=== PATIENT | female | born 1975 | race Hispanic/Latino ===

== ENCOUNTER → 2018-06-02 | Day surgery (SDC) | payer OTHER ==
--- NOTE | 2018-05-29 16:04 | Diagnostic Imaging Report ---
EXAMINATION: PA and lateral views of the chest. COMPARISON: None CLINICAL HISTORY: Preadmission, MASTER PILOT surgery DISCUSSION: Lines/tubes: None. Lungs: The lungs are well inflated and clear. No pneumonia or pulmonary edema. Pleura: No pleural effusion or pneumothorax. Heart and mediastinum: The cardiomediastinal silhouette is normal. Bones and soft tissues: No acute bony abnormalities. IMPRESSION: No acute cardiopulmonary abnormalities. Signed by: Dr. Lars Hernandez M.D. on 05/29/2018 4:00 PM
[2018-05-29 16:12] LABS: BASOPHILS % 0.4 % (0.0-1.0); EOSINOPHILS # (AUTO) 0.2 (0.0-0.4); EOSINOPHILS % 2.8 % (0.0-6.0); HEMATOCRIT 36.5 % (34.2-44.1); HEMOGLOBIN 11.9 g/dL (12.0-16.0); LYMPHOCYTES # (AUTO) 1.8 (1.0-3.2); LYMPHOCYTES % 25.8 % (18.0-39.1); MEAN CORPUSCULAR HEMOGLOBIN 25.8 pg (28-32); MEAN CORPUSCULAR HGB CONC 32.6 g/dL (31-35); MONOCYTES # (AUTO) 0.4 (0.2-0.8); MONOCYTES % 5.6 % (4.4-11.3); NEUTROPHILS # (AUTO) 4.4 (2.1-6.9); NEUTROPHILS % 65.1 % (38.7-80.0); PLATELET COUNT 319 x10e3/uL (140-360); RED BLOOD COUNT 4.62 x10e6/uL (3.6-5.1); RED CELL DISTRIBUTION WIDTH 15.7 % (11.7-14.4)
[~2018-06-02] MED LIST: ALBUTEROL0.63 MG/3 NEB; BUPIVACAINE 0.25%/EPI 30ML SDV INJ ONE; CEFAZOLIN SOD 1 GM VIAL ONE; DEXAMETHASONE SOD PHOS INJ 4 MG/ML VIAL ONE; FENTANYL CITRATE/PF 100MCG/2 ML INJ ONE; FLUOXETINE HCL10 MG PO; GLYCOPYRROLATE INJ 1MG/ 5 ML SYR ONE; KETOROLAC TROMETHAMINE 30 MG/ML VIAL ONE; LIDOCAINE HCL 2% LOCAL INJ 5 ML SDV VIAL INJ ONE; METOCLOPRAMIDE HCL 10 MG/2ML VIAL ONE; MIDAZOLAM HCL 2 MG/2 ML VIAL ONE; NEOSTIGMINE 5 MG/5ML SYR ONE; ONDANSETRON HCL INJ 2MG/ML 2ML 2 MG/ML VIAL ONE; PHENTERMINE H37.5 MG PO; PROMETHAZINE HCL (IM) 25 MG/ML VIAL ONE; PROPOFOL IV EMULSION 10 MG/ML 20 ML VIAL ONE; SEVOFLURANE INHAL SOLN 250 ML PEN BTL ONE; [UNRECOGNIZED DRUG - OTHER] PO
--- OUTSIDE RECORDS SUMMARY | 2018-06-02 06:55 | XMS REPORT | Summary of Care ---
Author Author [facility] Outpatient Imaging [place] [facility] [place] Address Unknown Phone Unavailable Encounter HQ Encntr_alias(FIN) [id number] Date(s): 12/22/14 - 12/22/14 [facility] Outpatient Imaging [place] [address] [place] [phone] Discharge Disposition: Home Attending Physician: Ran Ramirez MD Vital Signs No data available for this section Problem List No data available for this section Allergies, Adverse Reactions, Alerts No data available for this section Medications No data available for this section Results No data available for this section Immunizations No data available for this section Procedures No data available for this section Social History No data available for this section Assessment and Plan No data available for this section
--- OUTSIDE RECORDS SUMMARY | 2018-06-02 06:55 | XMS REPORT | Summary of Care ---
Author Author [facility] Outpatient Imaging [place] Organization [facility] Outpatient [facility] [place] Address Unknown Phone Unavailable Encounter HQ Juan Carlosntr_betty(FIN) [id number] Date(s): 01/31/15 - 01/31/15 [facility] Outpatient Imaging [place] [address] [place] [phone] Discharge Disposition: Home Attending Physician: Lucy Martinez MD Vital Signs No data available for this section Problem List No data available for this section Allergies, Adverse Reactions, Alerts No data available for this section Medications No data available for this section Results No data available for this section Immunizations No data available for this section Procedures Procedure Date Related Diagnosis Body Site Placement of breast localization device(s) 01/31/15 (eg, clip, metallic pellet, wire/needle, radioactive seeds), percutaneous; first lesion, including mammographic guidance Social History No data available for this section Assessment and Plan No data available for this section
--- OUTSIDE RECORDS SUMMARY | 2018-06-02 06:55 | XMS REPORT | Summary of Care ---
Author Author [facility] Outpatient [facility] [place] [facility] Outpatient [facility] [place] Address Unknown Phone Unavailable Encounter HQ Encntr_alias(FIN) [id number] Date(s): 10/25/14 - 10/25/14 [facility] Outpatient [facility] [place] [address] [place] [phone] Discharge Disposition: Home Attending Physician: Ran Ramirez [...]
--- OUTSIDE RECORDS SUMMARY | 2018-06-02 06:55 | XMS REPORT | Continuity of Care Document ---
Author Author [facility] Interface Address Unknown Phone Unavailable Problems Problem Status Onset Date Classification Date Reported Comments Source N63 - UNSPECIFIED LUMP IN BREAST Active 01/30/2015 BETTY Whitaker 789 - OTH ABDOMEN/PEL Active 10/20/2014 OPIRaisa Whitaker Tobacco use Active Problem 06/29/2016 [facility] Primary Knee pain, right Active Problem 06/29/2016 [facility] Primary Environmental allergies Active Diagnosis 06/29/2016 [facility] Primary Ankle pain Active Problem 06/29/2016 [facility] Primary Morbid obesity Active Problem 06/29/2016 [facility] Primary Body mass index of 40.1-44.9 in adult Active Problem 06/29/2016 [facility] Primary Cough Active Problem 06/29/2016 [facility] Primary Hyperlipidemia Active Problem 06/29/2016 [facility] Primary Shortness of breath Active Problem 06/29/2016 [facility] Primary Abnormal x-ray Active Problem 06/29/2016 [facility] Primary Low vitamin D level Active Problem 06/29/2016 [facility] Primary Right ankle pain Active Problem 06/29/2016 [facility] Primary Abnormal MRI Active Diagnosis 08/05/2015 [facility] Primary Irregular periods Active Problem 06/29/2016 [facility] Primary Asthma Active Diagnosis 06/29/2016 [facility] Primary Menorrhagia Active Problem 06/29/2016 [facility] Primary Increased urinary frequency Active Diagnosis 06/29/2016 [facility] Primary Dysmenorrhea Active Diagnosis 06/29/2016 [facility] Primary URI Active Diagnosis 06/29/2016 [facility] Primary Sinusitis Active Diagnosis 07/13/2015 [facility] Primary Bronchitis Active Diagnosis 03/05/2016 [facility] Primary Aphthous ulcer Active Diagnosis 08/02/2015 [facility] Primary Medications Medication Details Route Status Patient Instructions Ordering Provider Order Date Source Bactrim DS 1 tablet Orally Active 800-160 MG Orally Twice a day Elier 06/28/2016 [facility] Primary Albuterol Sulfate 3 ml Inhalation Active (2.5 MG/3ML) 0.083% Inhalation Three times a day as needed Elier 06/28/2016 [facility] Primary Tessalon Perles 1 capsule as needed Orally Active 100 MG Orally Three times a day as needed Elier 06/28/2016 [facility] Primary Naproxen 1 tablet as needed Orally Active 500 MG Orally every 12 hrs Elier 06/28/2016 [facility] Primary Azithromycin 2 tablets on the first day, then 1 tablet daily for 4 days Orally Active 250 MG Orally Once a day Elier 03/04/2016 [facility] Primary Benzonatate 1 capsule as needed Orally Active 200 MG Orally Three times a day as needed Elier 03/04/2016 [facility] Primary PredniSONE 1 tablet Orally Active 10 MG Orally Once a day Elier 03/04/2016 [facility] Primary Levocetirizine Dihydrochloride 1 tablet in the evening Orally Active 5 MG Orally Once a day Elier 12/01/2015 [facility] Primary PredniSONE 1 tablet Orally Active 10 mg Orally Once a day Elier 12/01/2015 [facility] Primary Azithromycin 2 tablets on the first day, then 1 tablet daily for 4 days Orally Active 250 MG Orally Once a day Elier 12/01/2015 [facility] Tessalon Perles 1 capsule as needed Orally Active 100 mg Orally Three times a day as needed Elier 12/01/2015 [facility] Primary Symbicort 2 puffs Inhalation Active 160-4.5 MCG/ACT Inhalation Twice a day Elier 12/01/2015 [facility] Natazia 1 tablet Orally Active 3/2-2/2-3/1 MG Orally Once a day Elier 10/12/2015 [facility] Primary Naproxen 1 tablet Orally Active 500 mg Orally Twice a day Elier 10/12/2015 [facility] Levofloxacin 1 tablet Orally Active 500 mg Orally Once a day Elier 08/01/2015 [facility] ProAir HFA 2 puffs as needed Inhalation Active 108 (90 Base) MCG/ACT Inhalation every 4-6 hrs as needed Elier 08/01/2015 [facility] Primary Tessalon Perles 1 capsule as needed Orally Active 100 mg Orally Three times a day as needed Elier 08/01/2015 [facility] Primary Montelukast Sodium 1 tablet in the evening Orally Active 10 mg Orally Once a day Elier 08/01/2015 [facility] Primary Levocetirizine Dihydrochloride 1 tablet in the evening Orally Active 5 MG Orally Once a day Elier 07/12/2015 [facility] Fluticasone Propionate 1 spray in each nostril Nasally Active 50 MCG/ACT Nasally Once a day Elier 07/12/2015 [facility] Benzonatate 1 capsule as needed Orally Active 200 MG Orally Three times a day as needed [facility] 07/12/2015 [facility] Amoxicillin 1 tablet Orally Active 500 mg Orally every 12 hrs Elier 07/12/2015 [facility] Proventil HFA 2 puffs as needed Inhalation Active 108 (90 Base) MCG/ACT Inhalation every 4-6 hrs as needed [facility] 07/12/2015 [facility] Levalbuterol Tartrate 1 puff as needed Inhalation Active 45 MCG/ACT Inhalation every 4-6 hrs as needed [facility]lier 07/12/2015 [facility] Ergocalciferol 1 capsule Orally Active 14656 UNIT Orally once a week [facility] 05/31/2015 [facility] Crestor 1 tablet Orally Active 40 mg Orally Once a day [facility] 05/31/2015 [facility] Meloxicam 1 tablet Orally Active 15 MG Orally Once a day [facility] 05/24/2015 [facility] Levocetirizine Dihydrochloride 1 tablet in the evening Orally Active 5 MG Orally daily [facility] ProAir HFA 2 puffs as needed Inhalation Active 108 (90 Base) MCG/ACT Inhalation every 4-6 hrs as needed [facility] Montelukast Sodium 1 tablet in the evening Orally Active 10 mg Orally Once a day [facility] Fluticasone Propionate 1 spray in each nostril Nasally Active 50 MCG/ACT Nasally Once a day [facility] Allergies, Adverse Reactions, Alerts Substance Category Reaction Severity Reaction type Status Date Reported Comments Source N.K.D.A. Adverse Reaction Info Not Available Adverse Reaction Active 06/28/2016 [facility] Primary Immunizations Immunization Date Given Site Status Last Updated Comments Source FLU SHOT 3 & UP 08/01/2015 completed [facility] Primary FLU SHOT 3 & UP 05/19/2015 completed [facility] Primary Results Order Name Results Value Reference Range Date Interpretation Comments Source Breast Mammo Scrn FINESSE w ana incl CAD MA Breast Mammo Scrn FINESSE w ana incl CAD MA BILATERAL DIGITAL SCREENING MAMMOGRAM 3D/2D WITH CAD: 04/06/2018 CLINICAL: Screening/Screening. Current study was evaluated with a Computer Aided Detection (CAD) system. COMPARISON:Comparison is made to exams dated: 04/01/2017 mammogram, 03/07/2016 mammogram, 09/04/2015 mammogram, 11/24/2014 mammogram, and 10/25/2014 mammogram - [facility]. TECHNIQUE: Digital Breast Tomosynthesis was performed and utilized for Interpretation. Current study was also evaluated with a Computer Aided Detection (CAD) system. FINDINGS: The tissue of both breasts is heterogeneously dense, which could obscure detection of small masses. There are benign densities in the right breast. No significant masses, calcifications, or other findings are seen in either breast. There has been no significant interval change. IMPRESSION: BENIGN RECOMMENDATION:There is no mammographic evidence of malignancy. A 1 year screening mammogram is recommended.(04/07/2019) This exam was interpreted at [id number] for [facility]. Vijay Conde M.D. Additional Observers: Rakesh wallis/andre:04/06/2018 16:10:15 Barkeep(s): RT Yolanda(R)(M), [facility] letter sent: BI-RADS 1/2 Dense Mammogram BI-RADS: 2 Benign 04/06/2018 - - Read by: Vijay Conde MD PHD Dictated Date/time: 04/06/18 16:10 Electronically Signed by: Vijay Conde MD PHD 04/06/18 16:10 FINAL REPORT [facility] Breast Complete Uni US Breast Complete Uni US COMPLETE ULTRASOUND OF RIGHT BREAST AND AXILLA: 04/01/2017 CLINICAL: D24.1 Benign Neoplasm Of Right Breast/D24.1 Benign Neoplasm Of Right Breast. COMPARISON:Comparison is made to exams dated: 04/01/2017 mammogram, 09/23/2016 ultrasound, 03/07/2016 ultrasound, 09/04/2015 ultrasound, 11/24/2014 ultrasound, and 03/07/2016 mammogram - [facility]. TECHNIQUE: Color flow and real-time ultrasound of the right breast four quadrants, retroareolar, and axilla regions were performed. FINDINGS: There is a benign 1 cm lobulated mass in the right breast at 2 o'clock anterior depth. This lobulated mass is of mixed echogenicity. This abnormality is not significantly changed. There also is a benign 7 mm oval mass in the right breast at 9 o'clock middle depth. This oval mass is hypoechoic. This abnormality is not significantly changed. No abnormalities were seen sonographically in the right axilla. IMPRESSION: BENIGN RECOMMENDATION:There is no sonographic evidence of malignancy. The 1 cm lobulated mass in the right breast at 2 o'clock anterior depth and the 7 mm oval mass in the right breast at 9 o'clock middle depth are benign. These findings are unchanged by mammography and ultrasound. A 1 year screening mammogram is recommended.(04/02/2018) This exam was interpreted at [id number] for [facility]. Dr. Adriana Almonte M.D. egk/:04/01/2017 17:25:40 Barkeep(s): Sondra Garcia [facility] letter sent: BI-RADS 1/2 Dense Ultrasound BI-RADS: 2 Benign 04/01/2017 - - Read by: Adriana Almonte MD Dictated Date/time: 04/01/17 17:25 Electronically Signed by: Adriana Almonte MD 04/01/17 17:25 FINAL REPORT [facility] Breast Mammo Diag FINESSE incl CAD MA Breast Mammo Diag FINESSE incl CAD MA BILATERAL DIGITAL DIAGNOSTIC MAMMOGRAM WITH CAD: 04/01/2017 CLINICAL: D24.1/Benign Neoplasm Of Right Breast. Current study was evaluated with a Computer Aided Detection (CAD) system. COMPARISON:Comparison is made to exams dated: 03/07/2016 mammogram, 09/04/2015 mammogram, 11/24/2014 mammogram, 10/25/2014 mammogram, 09/23/2016 ultrasound, and 03/07/2016 ultrasound - [facility]. TECHNIQUE: Mammographic views were obtained using digital acquisition. Current study was also evaluated with a Computer Aided Detection (CAD) system. FINDINGS: The tissue of both breasts is heterogeneously dense, which could obscure detection of small masses. The right breast has post-operative findings. There are benign densities in the right breast. No significant masses, calcifications, or other findings are seen in either breast. There has been no significant interval change. IMPRESSION: BENIGN RECOMMENDATION:There is no mammographic evidence of malignancy. This exam was interpreted at [id number] for [facility]. SUMMARY: Please see separate report for follow-up right breast ultrasound performed the same day. Dr. Adriana anaya/andre:04/01/2017 17:18:25 Barkeep(s): Magdalena Phillips, [facility] Mammogram BI-RADS: 2 Benign 04/01/2017 - - Read by: Adriana Almonte MD Dictated Date/time: 04/01/17 17:18 Electronically Signed by: Adriana Almonte MD 04/01/17 17:18 FINAL REPORT [facility] Breast Complete Uni US Breast Complete Uni US - BREAST COMPLETE UNI US/R ULTRASOUND OF RIGHT BREAST AND RIGHT AXILLA: 09/23/2016 CLINICAL: N63 Unspecified Lump In Breast/N63. Comparison is made to exams dated: 09/04/2015 mammogram, 03/07/2016 mammogram, 03/07/2016 ultrasound, 09/04/2015 ultrasound, 11/24/2014 ultrasound and 11/24/2014 mammogram - [facility]. Color flow and real-time ultrasound of the right breast and axilla were performed. There is a 6 mm oval mass with a circumscribed margin in the right breast at 9 o'clock middle depth 3 cm from the nipple. This oval mass displays posterior acoustic enhancement. This abnormality is not significantly changed. The difference in nipple distance from last exam is likely due to technical variation. There also is a 7 mm lobulated mass with a circumscribed margin in the right breast at 2 o'clock anterior depth 3 cm from the nipple. This lobulated mass is hypoechoic. This abnormality is not significantly changed. Color flow imaging demonstrates that there is no vascularity present. Additionally, there is a 9 mm oval mass with a circumscribed margin in the right breast at 2 o'clock middle depth 3 cm from the nipple. This oval mass is isoechoic. This abnormality is not significantly changed. No abnormalities were seen sonographically in the right axilla. Post-surgical change is seen in the retroareolar region at 12 o'clock. 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 IMPRESSION: PROBABLY BENIGN - FOLLOW-UP RECOMMENDED The 6 mm oval mass in the right breast at 9 o'clock middle depth resembles complicated cysts and is probably benign. A follow-up in 6 months is recommended. The 7 mm lobulated mass in the right breast at 2 o'clock anterior depth resembles a fibroadenoma or fibrocystic change and is probably benign. A follow-up in 6 months is recommended. The 9 mm oval mass in the right breast at 2 o'clock middle depth likely represents a fibroadenoma or fibrocystic change and is probably benign. A follow-up in 6 months is recommended. A follow-up mammogram and an ultrasound in 6 months is recommended to demonstrate stability. SUMMARY: These findings were discussed with the patient at the time of examination. The patient is due for bilateral mammogram in February 2017. Vijay wallis/penrad:09/23/2016 13:29:28 Barkeep: Fide Samuels, [facility] This exam was dictated and interpreted by [id number] for [facility]. letter sent: Followup Ultrasound BI-RADS: 3 Probably benign 09/23/2016 - - Read by: Vijay Conde MD PHD Dictated Date/time: 09/23/16 13:29 Electronically Signed by: Vijay Conde MD PHD 09/23/16 13:29 [facility] [place] Digital Mammo DX Finesse MA Digital Mammo DX Finesse MA - DIGITAL MAMMO DX FINESSE MA BILATERAL DIGITAL DIAGNOSTIC MAMMOGRAM WITH CAD: 03/07/2016 CLINICAL: N63 Unspecified Lump In Breast. Current study was evaluated with a Computer Aided Detection (CAD) system. Comparison is made to exams dated: 09/04/2015 mammogram and 11/24/2014 mammogram - [facility]. The tissue of both breasts is heterogeneously dense, which could obscure detection of small masses. The probably benign masses in the right breast seen on previous ultrasound are mammographically occult. There is a benign appearing density in the right breast. There also are post operative findings in the right breast. No significant masses, calcifications, or other findings are seen in either breast. IMPRESSION: INCOMPLETE: NEEDS ADDITIONAL IMAGING EVALUATION Right breast ultrasound will be performed for further evaluation. SUMMARY: Ultrasound will be performed at this time; please see separate report. Vijay Conde M.D. Additional Observers: Rakesh wallis/penrad:03/07/2016 10:40:31 Barkeep: Starla ROBLES(Demar)(M), [facility] This exam was dictated and interpreted by [id number] for [facility]. Mammogram BI-RADS: 0 Indeterminate 03/07/2016 - - Read by: Vijay Conde MD PHD Dictated Date/time: 03/07/16 10:40 Electronically Signed by: Vijay Conde MD PHD 03/07/16 10:40 FINAL REPORT [facility] Breast Complete Uni US Breast Complete Uni US - BREAST COMPLETE UNI US/R ULTRASOUND OF RIGHT BREAST AND RIGHT AXILLA: 03/07/2016 CLINICAL: Lump. Comparison is made to exams dated: 03/07/2016 mammogram, 09/04/2015 ultrasound, 09/04/2015 mammogram, 11/24/2014 ultrasound and 11/24/2014 mammogram - [facility]. Color flow and real-time ultrasound of the right breast and axilla were performed. There is a 6 mm oval mass with a circumscribed margin in the right breast at 9 o'clock middle depth 3 cm from the nipple. This oval mass displays posterior acoustic enhancement. This abnormality is not significantly changed. There also is a 6 mm lobulated mass with a circumscribed margin in the right breast at 2-3 o'clock anterior depth 3 cm from the nipple. This lobulated mass is hypoechoic. This abnormality is not significantly changed. Color flow imaging demonstrates that there is no vascularity present. Just adjacent to this mass, there is another 0.9 cm similar looking mass connecting with it. In retrospect, it was present on the prior ultrasound and this area does not seem to significantly changed. The entire area measures approximately 1.1 cm in the oblique dimension. There is interval upgrade of the ultrasound equipment and software. No abnormalities were seen sonographically in the right axilla. Post-surgical change is seen in the retroareolar region at 12 o'clock. 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 IMPRESSION: PROBABLY BENIGN - FOLLOW-UP RECOMMENDED The 6 mm oval mass in the right breast at 9 o'clock middle depth resembles complicated cysts and is probably benign. A follow-up in 6 months is recommended. The 6 mm lobulated mass in the right breast at 2-3 o'clock anterior depth resembles a fibroadenoma or fibrocystic change and is probably benign. A follow-up in 6 months is recommended. A follow-up ultrasound in 6 months is recommended to demonstrate stability. SUMMARY: These findings were discussed with the patient at the time of examination. Vijay Conde M.D. Additional Observers: Rakesh Chapman M.D. hh/:03/07/2016 10:49:48 Barkeep: Efra Brooks, [facility] This exam was dictated and interpreted by [id number] for [facility]. letter sent: Followup Ultrasound BI-RADS: 3 Probably benign 03/07/2016 - - Read by: Vijay Conde MD PHD Dictated Date/time: 03/07/16 10:49 Electronically Signed by: Vijay Conde MD PHD 03/07/16 10:49 FINAL REPORT [facility] US Breast Complete Uni MA US Breast Complete Uni MA - US BREAST COMPLETE UNI MA/R ULTRASOUND OF RIGHT BREAST AND RIGHT AXILLA: 09/04/2015 CLINICAL: N63. Comparison is made to exams dated: 09/04/2015 mammogram, 12/22/2014 ultrasound biopsy and 11/24/2014 ultrasound - [facility]. Color flow and real-time ultrasound of the right breast and axilla were performed. There is a 6 mm oval mass with a circumscribed margin in the right breast at 9 o'clock middle depth 3 cm from the nipple. This oval mass displays posterior acoustic enhancement. This abnormality is not significantly changed. The difference in nipple distance from last exam is likely due to technical variation. There also is a 6 mm oval mass with a circumscribed margin in the right breast at 3 o'clock anterior depth 3 cm from the nipple. This oval mass is hypoechoic. This correlates with mammography findings. Color flow imaging demonstrates that there is no vascularity present. No abnormalities were seen sonographically in the right axilla. Post-surgical change is seen in the retroareolar region at 12 o'clock. 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 IMPRESSION: PROBABLY BENIGN - FOLLOW-UP RECOMMENDED The 6 mm oval mass in the right breast at 9 o'clock middle depth resembles complicated cysts and is probably benign. The 6 mm oval mass in the right breast at 3 o'clock anterior depth resembles a fibroadenoma or fibrocystic change and is probably benign. A follow-up in 6 months is recommended. A follow-up ultrasound in 6 months is recommended to demonstrate stability. SUMMARY: These findings were discussed with the patient at the time of examination. The patient is due for bilateral mammogram in September 2015. Vijay Conde M.D. hh/penrad:09/04/2015 10:25:50 Barkeep: Sondra Garcia, [facility] This exam was dictated and interpreted by [id number] for [facility]. letter sent: Followup Ultrasound BI-RADS: 3 Probably benign 09/04/2015 - - Read by: Vijay Conde MD PHD Dictated Date/time: 09/04/15 10:25 Electronically Signed by: Vijay Conde MD PHD 09/04/15 10:25 FINAL REPORT [facility] Digital Mammo DX Uni MA Digital Mammo DX Uni MA - DIGITAL MAMMO DX UNI MA/R UNILATERAL RIGHT DIGITAL DIAGNOSTIC MAMMOGRAM WITH CAD: 09/04/2015 CLINICAL: N63. Current study was evaluated with a Computer Aided Detection (CAD) system. Comparison is made to exams dated: 01/31/2015 localization, 11/24/2014 mammogram and 10/25/2014 mammogram - [facility]. The tissue of the right breast is heterogeneously dense, which could obscure detection of small masses. There are post operative findings in the right breast. There is a new 8 mm oval density with a circumscribed margin in the right breast anterior depth medial region seen on the craniocaudal view only. No other significant masses or calcifications are seen in the breast. IMPRESSION: INCOMPLETE: NEEDS ADDITIONAL IMAGING EVALUATION The new 8 mm oval density in the right breast is indeterminate. An ultrasound is recommended. SUMMARY: Ultrasound will be performed at this time; please see separate report. Vijay Conde M.D. /penrad:09/04/2015 10:10:15 Barkeep: Laura CHAVARRIA)(Viraj), [facility] This exam was dictated and interpreted by [id number] for [facility]. Mammogram BI-RADS: 0 Indeterminate 09/04/2015 - - Read by: Vijay Conde MD PHD Dictated Date/time: 09/04/15 10:10 Electronically Signed by: Vijay Conde MD PHD 09/04/15 10:10 FINAL REPORT BETTY [place] Breast specimen surgery Breast specimen surgery AMENDMENT: 02/06/2015 Vijay Conde M.D. 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 - Previous biopsy site and clip identified. - Background breast with fibrocystic change and microcalcifications. - Negative for carcinoma. - BREAST SPECIMEN SURGERY BI-PLANAR RADIOGRAPH SPECIMEN IMAGING RIGHT BREAST: 01/31/2015 CLINICAL: Right Breast Mass. Correlation is made to exams dated: 01/31/2015 localization, 12/22/2014 ultrasound biopsy, 11/24/2014 ultrasound, 11/24/2014 mammogram and 10/25/2014 [facility] [facility] A surgical biopsy specimen was imaged using bi-planar radiograph specimen imaging for the previous biopsy site located in the right breast at 1 o'clock anterior depth. This was described on the previous ultrasound report. IMPRESSION: BI-PLANAR RADIOGRAPH SPECIMEN IMAGING The imaged specimen includes a biopsy clip and the distal portion of the localization wire. Follow-up with ACR/ACS guidelines. SUMMARY: Findings were discussed with Dr. Martinez at the time of examination. Vijay Conde M.D. Additional Observers: Jerry wallis/andre:01/31/2015 16:08:08 Barkeep: Laura ROBLES(Demar)(M), [facility] Outpatient Imaging Department This exam was dictated and interpreted by [id number] for [facility]. letter sent: Post Bx Results 01/31/2015 - - Read by: Vijay Conde MD PHD Dictated Date/time: 02/06/15 14:50 Electronically Signed by: Vijay Conde MD PHD 02/06/15 14:50 FINAL REPORT - - Read by: Vijay Conde MD PHD Dictated Date/time: 01/31/15 16:08 Electronically Signed by: Vijay Conde MD PHD 01/31/15 16:08 FINAL REPORT BETTY [facility]aker Mammogram Needle Loc Uni MA Mammogram Needle Loc Uni MA - MAMMOGRAM NEEDLE LOC UNI MA/R DIGITAL MAMMOGRAPHY GUIDED WIRE LOCALIZATION RIGHT BREAST WITH POST DIGITAL MAMMOGRAPHIC IMAGIN01/31/2015 CLINICAL: Right Breast Mass. PATIENT CONSENT: Informed consent was obtained for preoperative hookwire needle localization of the targeted lesion following a detailed discussion of the risk, alternatives, benefits and complications. A formal timeout was performed by the team prior to the procedure to verify the patient's identity and lesion site. Correlation is made to exams dated: 12/22/2014 ultrasound biopsy, 11/24/2014 ultrasound, 11/24/2014 mammogram and 10/25/2014 mammogram - [facility] Outpatient Imaging Department. A wire localization using digital mammography guidance was performed for the marker clip located in the right breast at 12 o'clock anterior depth. This was described on the previous ultrasound report. The skin was prepped in the usual manner. Local anesthetic was administered to the access site. The localization was approached from the medial aspect. A J-hook wire was inserted into the tar geted area under digital mammography guidance. A sterile dressing was applied to the access site. Post placement digital mammographic imaging demonstrates the tip traverses the targeted area. IMPRESSION: WIRE LOCALIZATION Wire localization for the marker clip in the right breast at 12 o'clock anterior depth was successful with no apparent post procedure complications. Follow-up with ACR/ACS guidelines. Vijay Conde M.D. h[facility]/[place]:01/31/2015 10:03:44 Barkeep: Grace ROBLES(Demar)(Viraj), [facility] Outpatient Imaging Department This exam was dictated and interpreted by [id number] for [facility]. letter sent: Post Bx Results 01/31/2015 - - Read by: Vijay Conde MD PHD Dictated Date/time: 01/31/15 10:03 Electronically Signed by: Vijay Conde MD PHD 01/31/15 10:03 FINAL REPORT BETTY [place] Breast biopsy uni US Guided w clip MA Breast biopsy uni US Guided w clip MA - BREAST BIOPSY UNI US GUIDED W CLIP MA/R ULTRASOUND GUIDED BIOPSY RIGHT BREAST WITH MARKING DEVICE INSERTED AND POST DIGITAL MAMMOGRAPHIC IMAGIN12/22/2014 CLINICAL: 793.8. Correlation is made to exams dated: 11/24/2014 ultrasound, 11/24/2014 mammogram and 10/25/2014 mammogram - [facility] Outpatient Imaging Department. An ultrasound guided biopsy using real-time ultrasound was performed for the abnormal duct located in the right breast at 12 o'clock in the retroareolar region. This was described on the previous mammography and ultrasound reports. The skin was prepped in the usual manner. Local anesthetic was administered to the access site. The abnormality was approached from the lateral aspect. A 14 gauge biopsy needle was placed adjacent to the abnormality under ultrasound guidance. Once the needle was documented to be in the correct location, five cores were obtained using an Achieve automated firing device. A titanium clip was inserted into the biopsy cavity. A skin adhesive and a sterile dressing were applied to the access site. Post procedure digital mammographic imaging demonstrates the clip at the targeted area. The specimens were sent to the laboratory for pathological analysis. IMPRESSION: ULTRASOUND GUIDED BIOPSY BENIGN Ultrasound guided biopsy of the abnormal duct in the right breast at 12 o'clock in the retroareolar region was successful with no apparent post procedure complications. Pathology indicates benign fibroadenoma (FA). Pathology results are concordant with mammography and ultrasound findings. A follow-up mammogram and an ultrasound in 6 months is recommended to demonstrate stability. Vijay Conde M.D. Additional Observers: Nadeen wallis/andre:12/27/2014 09:10:40 Barkeep: Sondra Garcia, [facility] Outpatient Imaging Department This exam was dictated and interpreted by [id number] for [facility]. letter sent: Post Bx Results 12/22/2014 - - Read by: Vijay Conde MD PHD Dictated Date/time: 12/27/14 09:10 Electronically Signed by: Vijay Conde MD PHD 12/27/14 09:10 [facility] US Breast Complete Uni MA - US BREAST COMPLETE UNI MA/R ULTRASOUND OF RIGHT BREAST AND RIGHT AXILLA: 11/24/2014 CLINICAL: Lump, Abn Mammo. Comparison is made to exams dated: 11/24/2014 mammogram and 10/25/2014 mammogram - [facility] Outpatient Imaging Department. Color flow and real-time ultrasound of the right breast and axilla were performed. There is a dilated duct in the right breast at 12-1 o'clock in the retroareolar region 1 cm from the nipple. This dilated duct displays internal echoes. This correlates with mammography findings. No abnormalities were seen sonographically in the right axilla. IMPRESSION: SUSPICIOUS OF MALIGNANCY - FOLLOW-UP RECOMMENDED The dilated duct in the right breast is at a low suspicion for malignancy. An ultrasound guided biopsy is recommended. SUMMARY: These findings were discussed with the patient at the time of examination. Vijay Conde M.D. Additional Observers: Karoline Gilmore /:11/24/2014 13:27:56 Barkeep: Samantha efra brooks, [facility] Outpatient Imaging Department This exam was dictated and interpreted by [id number] for [facility]. letter sent: Biopsy Ultrasound BI-RADS: 4a Suspicious abnormality - low suspicion for malignancy 11/24/2014 - - Read by: Vijay Conde MD PHD Dictated Date/time: 11/24/14 13:27 Electronically Signed by: Vjiay Conde MD PHD 11/24/14 13:27 FINAL REPORT [facility] Digital Mammo DX Finesse MA Digital Mammo DX Finesse MA - DIGITAL MAMMO DX FINESSE MA BILATERAL DIGITAL DIAGNOSTIC MAMMOGRAM WITH CAD: 11/24/2014 CLINICAL: 611.72. Current study was evaluated with a Computer Aided Detection (CAD) system. Comparison is made to exam dated: 10/25/2014 mammogram - [facility] Outpatient Imaging Department. The tissue of both breasts is heterogeneously dense, which could obscure detection of small masses. There is a 2.5 cm focal asymmetry in the right breast at 12 o'clock in the retroareolar region. The 1.2 cm oval mass in the left breast at 1 o'clock middle depth is no longer seen. No other significant masses or calcifications are seen in either breast. IMPRESSION: INCOMPLETE: NEEDS ADDITIONAL IMAGING EVALUATION The 2.5 cm focal asymmetry in the right breast at 12 o'clock in the retroareolar region is indeterminate. An ultrasound is recommended. SUMMARY: Ultrasound will be performed at this time; please see separate report. Vijay Conde M.D. Additional Observers: Karoline wallis/penrad:11/24/2014 13:24:50 Barkeep: Kateryna CHAVARRIA)(Viraj), [facility] Outpatient Imaging Department This exam was dictated and interpreted by [id number] for [facility]. Mammogram BI-RADS: 0 Indeterminate 11/24/2014 - - Read by: Vijay Conde MD PHD Dictated Date/time: 11/24/14 13:24 Electronically Signed by: Vijay Conde MD PHD 11/24/14 13:24 FINAL REPORT [facility] Digital Mammo Screening Finesse MA Digital Mammo Screening Finesse MA - DIGITAL MAMMO SCREENING FINESSE MA BILATERAL FIRST EVER DIGITAL SCREENING MAMMOGRAM WITH CAD: 10/25/2014 CLINICAL: Routine. Current study was evaluated with a Computer Aided Detection (CAD) system. No prior exams were available for comparison. The tissue of both breasts is heterogeneously dense, which could obscure detection of small masses. There is a 1 cm oval mass with an obscured margin in the right breast at 1 o'clock anterior depth. There is a 1.2 cm oval mass with an obscured margin in the left breast at 1 o'clock middle depth. No other significant masses or calcifications are seen in either breast. IMPRESSION: INCOMPLETE: NEEDS ADDITIONAL IMAGING EVALUATION The 1 cm oval mass in the right breast at 1 o'clock anterior depth likely represents a cyst or a fibroadenoma and is indeterminate. Additional views as well as an ultrasound are recommended. The 1.2 cm oval mass in the left breast at 1 o'clock middle depth likely represents a cyst or a fibroadenoma and is indeterminate. Additional views as well as an ultrasound are recommended. Vijay Conde M.D. hh/[place]:10/26/2014 09:56:58 Barkeep: Laura ROBLES(R)(M), [facility] Outpatient Imaging Department This exam was dictated and interpreted by [id number] for [facility]. letter sent: Additional Imaging Mammogram BI-RADS: 0 Indeterminate 10/25/2014 - - Read by: Vijay Conde MD PHD Dictated Date/time: 10/26/14 09:56 Electronically Signed by: Vijay Conde MD PHD 10/26/14 09:56 FINAL REPORT [facility] Vital Signs Vital Sign Value Date Comments Source Weight 211.9 06/28/2016 [facility] Primary Height 60 06/28/2016 [facility] Primary Temperature Oral (F) 97.3 F 06/28/2016 [facility] Primary Heart Rate 76 06/28/2016 [facility] Primary Diastolic (mm Hg) 81 06/28/2016 [facility] Primary Systolic (mm Hg) 139 06/28/2016 [facility] Primary Weight 210.6 03/04/2016 [facility] Primary Height 60 03/04/2016 [facility] Primary Temperature Oral (F) 97.9 F 03/04/2016 [facility] Primary Heart Rate 89 03/04/2016 [facility] Primary Diastolic (mm Hg) 83 03/04/2016 [facility] Primary Systolic (mm Hg) 134 03/04/2016 [facility] Primary Weight 209.2 12/01/2015 [place] [facility] Primary Height 60 12/01/2015 [place] [facility] Primary Temperature Oral (F) 97.2 F 12/01/2015 [facility] Primary Heart Rate 78 12/01/2015 [facility] Primary Diastolic (mm Hg) 83 12/01/2015 [facility] Primary Systolic (mm Hg) 126 12/01/2015 [facility] Primary Weight 210.5 10/12/2015 [facility] Primary Height 60 10/12/2015 [facility] Primary Temperature Oral (F) 98.0 F 10/12/2015 [facility] Primary Heart Rate 74 10/12/2015 [facility] Primary Diastolic (mm Hg) 65 10/12/2015 [facility] Primary Systolic (mm Hg) 133 10/12/2015 [facility] Primary Weight 212.6 08/04/2015 [facility] Primary Height 60 08/04/2015 [facility] Primary Temperature Oral (F) 98.1 F 08/04/2015 [facility] Primary Heart Rate 90 08/04/2015 [facility] Primary Diastolic (mm Hg) 77 08/04/2015 [facility] Primary Systolic (mm Hg) 109 08/04/2015 [facility] Primary Weight 213.1 08/01/2015 [facility] Primary Height 60 08/01/2015 [facility] Primary Temperature Oral (F) 98.5 F 08/01/2015 [facility] Primary Heart Rate 74 08/01/2015 [facility] Primary Diastolic (mm Hg) 77 08/01/2015 [facility] Primary Systolic (mm Hg) 115 08/01/2015 [facility] Primary Weight 212.4 07/12/2015 [facility] Primary Height 60 07/12/2015 [facility] Primary Temperature Oral (F) 97.5 F 07/12/2015 [facility] Primary Heart Rate 70 07/12/2015 [facility] Primary Diastolic (mm Hg) 78 07/12/2015 [facility] Primary Systolic (mm Hg) 122 07/12/2015 [facility] Primary Weight 213.5 05/31/2015 [facility] Primary Height 60 05/31/2015 [facility] Primary Temperature Oral (F) 98.6 F 05/31/2015 [facility] Primary Heart Rate 90 05/31/2015 [facility] Primary Diastolic (mm Hg) 83 05/31/2015 [facility] Primary Systolic (mm Hg) 133 05/31/2015 [facility] Primary Weight 211.7 05/24/2015 [facility] Primary Height 60 05/24/2015 [facility] Primary Temperature Oral (F) 98.6 F 05/24/2015 [facility] Primary Heart Rate 78 05/24/2015 [facility] Primary Diastolic (mm Hg) 85 05/24/2015 [facility] Primary Systolic (mm Hg) 152 05/24/2015 [facility] Primary Weight 214.2 05/19/2015 [facility] Primary Height 60 05/19/2015 [facility] Primary Temperature Oral (F) 98.6 F 05/19/2015 [facility] Primary Heart Rate 92 05/19/2015 [facility] Primary Diastolic (mm Hg) 84 05/19/2015 [facility] Primary Systolic (mm Hg) 134 05/19/2015 [facility] Primary Encounters Location Location Details Encounter Type Encounter Number Reason For Visit Attending Provider ADM Date DC Date Status Source [facility] Outpatient Imaging [place] [facility] [id number] Ran Ramirez 10/25/2014 10/26/2014 BETTY Sherman [facility] [place] [facility] [id number] Ran Ramirez 11/24/2014 [facility] [place] [facility] [id number] Ran Ramirez 12/22/2014 12/23[facility] [place] [facility] [id number] Lucy Juan 01/31/2015 02/01/2015 BETTY [place] [facility] Primary Care patient here for her yearly physical and labs [id number] 05/19/2015 05/19/2015 [facility] Primary Care patient here for her yearly physical and labs [id number] 05/19/2015 05/19/2015 [facility] Primary Care patient here for her yearly physical and labs [id number] 05/19/2015 05/19/2015 [facility] Primary Care patient here for her yearly physical and labs [id number] 05/19/2015 05/19/2015 [facility] Primary Care patient here for her yearly physical and labs [id number] 05/19/2015 05/19/2015 [facility] Primary Care patient here for her yearly physical and labs [id number] 05/19/2015 05/19/2015 [facility] Primary Care patient here for her yearly physical and labs [id number] 05/19/2015 05/19/2015 [facility] Primary Care patient here for her yearly physical and labs [id number] 05/19/2015 05/19/2015 [facility] Primary Care patient here for her yearly physical and labs [id number] 05/19/2015 05/19/2015 [facility] Primary Care patient here for her yearly physical and labs [id number] 05/19/2015 05/19/2015 [facility] Primary Care patient here with complains of ankle pain [id number] 05/24/2015 05/24/2015 [facility] Primary Care patient here with complains of ankle pain [id number] 05/24/2015 05/24/2015 [facility] Primary Care patient here with complains of ankle pain [id number] 05/24/2015 05/24/2015 [facility] Primary Care patient here with complains of ankle pain [id number] 05/24/2015 05/24/2015 [facility] Primary Care patient here with complains of ankle pain [id number] 05/24/2015 05/24/2015 [facility] Primary Care patient here with complains of ankle pain [id number] 05/24/2015 05/24/2015 [facility] Primary Care patient here with complains of ankle pain [id number] 05/24/2015 05/24/2015 [facility] Primary Care patient here with complains of ankle pain [id number] 05/24/2015 05/24/2015 [facility] Primary Care patient here with complains of ankle pain [id number] 05/24/2015 05/24/2015 [facility] Primary Care patient here to go over abnormal lab results and x-ray results [id number] 05/31/2015 05/31/2015 [facility] Primary Care patient here to go over abnormal lab results and x-ray results [id number] 05/31/2015 05/31/2015 [facility] Primary Care patient here to go over abnormal lab results and x-ray results [id number] 05/31/2015 05/31/2015 [facility] Primary Care patient here to go over abnormal lab results and x-ray results [id number] 05/31/2015 05/31/2015 [facility] Primary Care patient here to go over abnormal lab results and x-ray results [id number] 05/31/2015 05/31/2015 [facility] Primary Care patient here to go over abnormal lab results and x-ray results [id number] 05/31/2015 05/31/2015 [facility] Primary Care patient here to go over abnormal lab results and x-ray results [id number] 05/31/2015 05/31/2015 [facility] Primary Care patient here to go over abnormal lab results and x-ray results [id number] 05/31/2015 05/31/2015 [facility] Primary Care Patient here for sick visit [id number] 07/12/2015 07/12/2015 [facility] Primary Care Patient here for sick visit [id number] 07/12/2015 07/12/2015 [facility] Primary Care Patient here for sick visit [id number] 07/12/2015 07/12/2015 [facility] Primary Care Patient here for sick visit [id number] 07/12/2015 07/12/2015 [facility] Primary Care Patient here for sick visit [id number] 07/12/2015 07/12/2015 [facility] Primary Care Patient here for sick visit [id number] 07/12/2015 07/12/2015 [facility] Primary Care Patient here for sick visit [id number] 07/12/2015 07/12/2015 [facility] Primary Care Patient here for sick visit [id number] 08/01/2015 08/01/2015 [facility] Primary Care Patient here for sick visit [id number] 08/01/2015 08/01/2015 [facility] Primary Care Patient here for sick visit [id number] 08/01/2015 08/01/2015 [facility] Primary Care Patient here for sick visit [id number] 08/01/2015 08/01/2015 [facility] Primary Care Patient here for sick visit [id number] 08/01/2015 08/01/2015 [facility] Primary Care Patient here for sick visit [id number] 08/01/2015 08/01/2015 [facility] Primary Care patient here for follow up on ankle and knee pain [id number] 08/04/2015 08/04/2015 [facility] Primary Care patient here for follow up on ankle and knee pain [id number] 08/04/2015 08/04/2015 [facility] Primary Care patient here for follow up on ankle and knee pain [id number] 08/04/2015 08/04/2015 [facility] Primary Care patient here for follow up on ankle and knee pain [id number] 08/04/2015 08/04/2015 [facility] Primary Care patient here for follow up on ankle and knee pain [id number] 08/04/2015 08/04/2015 [facility] Primary Care patient here with complains of have her menstral cycle every 3 weeks [id number] 10/12/2015 10/12/2015 [facility] Primary Care patient here with complains of have her menstral cycle every 3 weeks [id number] 10/12/2015 10/12/2015 [facility] Primary Care patient here with complains of have her menstral cycle every 3 weeks [id number] 10/12/2015 10/12/2015 [facility] Primary Care patient here with complains of have her menstral cycle every 3 weeks [id number] 10/12/2015 10/12/2015 [facility] Care odered ultrasound [id number] 10/16/2015 10/16/2015 [facility] Primary Care odered ultrasound [id number] 10/16/2015 10/16/2015 [facility] Primary Care odered ultrasound [id number] 10/16/2015 10/16/2015 [facility] Patient here for sick visit [id number] 12/01/2015 12/01/2015 [facility] Care Patient here for sick visit [id number] 12/01/2015 12/01/2015 [facility] Primary Care patient here for sick visit [id number] 03/04/2016 03/04/2016 [facility] Primary Procedures Procedure Code Date Perfomer Comments Source Placement of breast localization device(s) (eg, clip, metallic pellet, wire/needle, radioactive seeds), percutaneous; first lesion, including mammographic guidance 10219 01/31/2015 JIMMY [facility]
--- OUTSIDE RECORDS SUMMARY | 2018-06-02 06:55 | XMS REPORT | Summary of Care ---
Author Author [facility] [place] Organization [facility] [place] Address Unknown Phone Unavailable Encounter HQ Encntr_alias(FIN) [id number] Date(s): 11/24/14 - 11/24/14 [facility] [place] [address] [place] [phone] Discharge Disposition: Home Attending Physician: Ran Ramirez [...]
--- OUTSIDE RECORDS SUMMARY | 2018-06-02 06:56 | XMS REPORT ---
Author Author Lara Thapa [facility] eClinicalWorks Address Unknown Phone Unavailable Care Team Providers Care Flour Worker Name Role Phone Lara Thapa Unavailable Allergies, Adverse Reactions, Alerts Substance Reaction Event Type N.K.D.A. Info Not Available Non Drug Allergy Encounters Encounter Location Date Patient here for sick visit [facility] July 12, 2015 Patient here for sick visit [facility] August 01, 2015 patient here for her yearly physical and labs [facility] May 19, 2015 patient here with complains of ankle pain [facility] May 24, 2015 patient here to go over abnormal lab results and x-ray results [facility] May 31, 2015 Problems Problem Type Condition ICD-9 Code Onset Dates Condition Status Problem Tobacco use Z72.0 Active Problem Knee pain, right M25.561 Active Problem Environmental allergies Z91.09 Active Problem Cough R05 Active Problem Hyperlipidemia E78.5 Active Problem Shortness of breath R06.02 Active Problem Abnormal x-ray R93.8 Active Problem Ankle pain M25.579 Active Problem Low vitamin D level E55.9 Active Problem Right ankle pain M25.571 Active Assessment Aphthous ulcer K12.0 Active Assessment Bronchitis J40 Active Problem Morbid obesity E66.01 Active Assessment Environmental allergies Z91.09 Active Problem Body mass index (BMI) of 40.1-44.9 in adult Z68.41 Active Medications Medication Code System Code Instructions Start Date End Date Status Dosage Montelukast Sodium [facility] [address]-80 10 mg Orally Once a day August 01, 2015 Active 1 tablet in the evening Fluticasone Propionate [facility] [address]-48 50 MCG/ACT Nasally Once a day July 12, 2015 Active 1 spray in each nostril Tessalon Perles [facility] [address]-24 100 mg Orally Three times a day as needed August 01, 2015 August 11, 2015 Active 1 capsule as needed Ergocalciferol [facility] [address]-50 01796 UNIT Orally once a week May 31, 2015 August 29, 2015 Active 1 capsule Levocetirizine Dihydrochloride [facility] [address]-53 5 MG Orally Once a day July 12, 2015 September 10, 2015 Active 1 tablet in the evening Proventil HFA [facility] [address]-36 108 (90 Base) MCG/ACT Inhalation every 4- 6 hrs as needed July 12, 2015 Active 2 puffs as needed Levofloxacin [facility] [address]-59 500 mg Orally Once a day August 01, 2015 August 06, 2015 Active 1 tablet ProAir HFA [facility] [address]-85 108 (90 Base) MCG/ACT Inhalation every 4-6 hrs as needed August 01, 2015 Active 2 puffs as needed Crestor [facility] [address]-22 40 mg Orally Once a day May 31, 2015 Active 1 tablet Levalbuterol Tartrate [facility] [address]-59 45 MCG/ACT Inhalation every 4-6 hrs as needed July 12, 2015 Active 1 puff as needed Social History Social History Element Qualifiers Date Reported Tobacco Use: . Are you a: current smoker August 01, 2015 Use of recreational / street drugs? . Answer: No August 01, 2015 Alcohol Screening: . Points: 2, Interpretation: Negative August 01, 2015 Do you have pets? . Status: No August 01, 2015 Caffeine intake? . Status: Yes, What type: Coffee, How often? Daily August 01, 2015 Do you exercise? . Answer: Yes, Type: walking, How often? Weekly August 01, 2015 Do you drink alcohol? . Status: Yes, Type: Beer wine, How often? Once per month August 01, 2015 Vital Signs Date/Time: August 01, 2015 Weight 213.1 lbs Height 60 in Temperature 98.5 F Cardiac Monitoring Heart Rate 74 /min Blood Pressure Diastolic 77 mm Hg Blood Pressure Systolic 115 mm Hg Immunizations Vaccine Administration Date FLU SHOT 3 & UP August 01, 2015 Summary Purpose eClinicalWorks Submission
--- OUTSIDE RECORDS SUMMARY | 2018-06-02 06:56 | XMS REPORT ---
Author Author Lara Thapa [facility] eClinicalWorks Address Unknown Phone Unavailable Care Team Providers Care Commercial Credit Portfolio Manager Name Role Phone Lara Thapa Unavailable Encounters Encounter Location Date Patient here for sick visit [facility] July 12, 2015 Patient here for sick visit [facility] August 01, 2015 patient here for follow up on ankle and knee pain [facility] August 04, 2015 patient here with complains of have her menstral cycle every 3 weeks [facility] October 12, 2015 patient here for her yearly physical and labs [facility] May 19, 2015 patient here with complains of ankle pain [facility] May 24, 2015 patient here to go over abnormal lab results and x-ray results [facility] May 31, 2015 odered ultrasound [facility] October 16, 2015 Problems Problem Type Condition ICD-9 Code Onset Dates Condition Status Problem Abnormal x-ray R93.8 Active Problem Low vitamin D level E55.9 Active Problem Right ankle pain M25.571 Active Problem Menorrhagia N92.0 Active Problem Dysmenorrhea N94.6 Active Problem Irregular periods N92.6 Active Problem Cough R05 Active Problem Hyperlipidemia E78.5 Active Problem Increased urinary frequency R35.0 Active Problem Shortness of breath R06.02 Active Assessment Menorrhagia N92.0 Active Problem Tobacco use Z72.0 Active Problem Environmental allergies Z91.09 Active Problem Morbid obesity E66.01 Active Problem Knee pain, right M25.561 Active Problem Body mass index (BMI) of 40.1-44.9 in adult Z68.41 Active Problem Ankle pain M25.579 Active Social History Social History Element Qualifiers Date Reported Tobacco Use: . Are you a: current smoker October 12, 2015 Use of recreational / street drugs? . Answer: No October 12, 2015 Alcohol Screening: . Points: 2, Interpretation: Negative October 12, 2015 Do you have pets? . Status: No October 12, 2015 Caffeine intake? . Status: Yes, What type: Coffee, How often? Daily October 12, 2015 Do you exercise? . Answer: Yes, Type: walking, How often? Weekly October 12, 2015 Do you drink alcohol? . Status: Yes, Type: Beer wine, How often? Once per month October 12, 2015 Summary Purpose eClinicalWorks Submission
--- OUTSIDE RECORDS SUMMARY | 2018-06-02 06:56 | XMS REPORT ---
Author Author Lara Thapa [facility] eClinicalWorks Address Unknown Phone Unavailable Care Team Providers Care Dye Stand Loader Name Role Phone Lara Thapa Unavailable Allergies, Adverse Reactions, Alerts Substance Reaction Event Type N.K.D.A. Info Not Available Non Drug Allergy Problems Problem Type Condition Code Onset Dates Condition Status Problem Right ankle pain M25.571 Active Problem Hyperlipidemia E78.5 Active Problem Low vitamin D level E55.9 Active Problem Irregular periods N92.6 Active Assessment Asthma J45.909 Active Problem Menorrhagia N92.0 Active Assessment Increased urinary frequency R35.0 Active Assessment Dysmenorrhea N94.6 Active Problem Asthma J45.909 Active Problem Shortness of breath R06.02 Active Problem Cough R05 Active Problem Dysmenorrhea N94.6 Active Problem Increased urinary frequency R35.0 Active Assessment URI (upper respiratory infection) J06.9 Active Problem Morbid obesity E66.01 Active Assessment Shortness of breath R06.02 Active Assessment Environmental allergies Z91.09 Active Problem Environmental allergies Z91.09 Active Problem Knee pain, right M25.561 Active Problem Body mass index (BMI) of 40.1-44.9 in adult Z68.41 Active Problem Ankle pain M25.579 Active Problem Tobacco use Z72.0 Active Problem Abnormal x-ray R93.8 Active Medications Medication Code System Code Instructions Start Date End Date Status Dosage Crestor [facility] [address]-72 40 mg Orally Once a day May 31, 2015 Active 1 tablet Levocetirizine Dihydrochloride [facility] [address]-44 5 MG Orally daily Active 1 tablet in the evening Bactrim DS [facility] [address]-79 800-160 MG Orally Twice a day June 28, 2016 July 03, 2016 Active 1 tablet Albuterol Sulfate [facility] [address]-98 (2.5 MG/3ML) 0.083% Inhalation Three times a day as needed June 28, 2016 Active 3 ml ProAir HFA [facility] [address]-09 108 (90 Base) MCG/ACT Inhalation every 4-6 hrs as needed Active 2 puffs as needed Montelukast Sodium [facility] [address]-12 10 mg Orally Once a day Active 1 tablet in the evening Tessalon Perles [facility] [address]-88 100 MG Orally Three times a day as needed June 28, 2016 July 08, 2016 Active 1 capsule as needed Fluticasone Propionate [facility] [address]-44 50 MCG/ACT Nasally Once a day Active 1 spray in each nostril Naproxen [facility] [address]-35 500 MG Orally every 12 hrs June 28, 2016 September 26, 2016 Active 1 tablet as needed Vital Signs Date/Time: June 28, 2016 BMI 41.38 Index Weight 211.9 lbs Height 60 in Temperature 97.3 F Cardiac Monitoring Heart Rate 76 /min Blood Pressure Diastolic 81 mm Hg Blood Pressure Systolic 139 mm Hg Results No Known Results Summary Purpose eClinicalWorks Submission
--- OUTSIDE RECORDS SUMMARY | 2018-06-02 06:56 | XMS REPORT ---
Author Author Lara Thapa [facility] eClinicalWorks Address Unknown Phone Unavailable Care Team Providers Care Woods Laborer Name Role Phone Lara Thapa Unavailable Allergies, Adverse Reactions, Alerts Substance Reaction Event Type N.K.D.A. Info Not Available Non Drug Allergy Encounters Encounter Location Date Patient here for sick visit [facility] July 12, 2015 Patient here for sick visit [facility] August 01, 2015 patient here for follow up on ankle and knee pain [facility] August 04, 2015 patient here with complains of have her menstral cycle every 3 weeks [facility] October 12, 2015 patient here for her yearly physical and labs [facility] May 19, 2015 patient here with complains of ankle pain [facility] May 24, 2015 patient here to go over abnormal lab results and x-ray results [facility] May 31, 2015 odered ultrasound [facility] October 16, 2015 Patient here for sick visit [facility] Dec 01, 2015 Problems Problem Type Condition ICD-9 Code Onset Dates Condition Status Problem Right ankle pain M25.571 Active Problem Hyperlipidemia E78.5 Active Problem Low vitamin D level E55.9 Active Problem Irregular periods N92.6 Active Assessment Asthma J45.909 Active Problem Menorrhagia N92.0 Active Problem Asthma J45.909 Active Problem Shortness [...] Date End Date Status Dosage Montelukast Sodium [facility] [address]-90 10 mg Orally Once a day August 01, 2015 Active 1 tablet in the evening Levocetirizine Dihydrochloride [facility] [address]-55 5 MG Orally Once a day Dec 01, 2015 Jan 30, 2016 Active 1 tablet in the evening PredniSONE [facility] [address]-26 10 mg Orally Once a day Dec 01, 2015 Dec 06, 2015 Active 1 tablet Azithromycin [facility] [address]-53 250 MG Orally Once a day Dec 01, 2015 Dec 06, 2015 Active 2 tablets on the first day, then 1 tablet daily for 4 days Fluticasone Propionate [facility] [address]-69 50 MCG/ACT Nasally Once a day July 12, 2015 Active 1 spray in each nostril Natazia [facility] [address]-52 3/2-2/2-3/1 MG Orally Once a day October 12, 2015 Active 1 tablet Tessalon Perles [facility] [address]-02 100 mg Orally Three times a day as needed Dec 01, 2015 Dec 11, 2015 Active 1 capsule as needed Symbicort [facility] [address]-81 160-4.5 MCG/ACT Inhalation Twice a day Dec 01, 2015 Jan 31, 2016 Active 2 puffs Crestor [facility] [address]-14 40 mg Orally Once a day May 31, 2015 Active 1 tablet ProAir HFA [facility] [address]-26 108 (90 Base) MCG/ACT Inhalation every 4-6 hrs as needed August 01, 2015 Active 2 puffs as needed Social History Social History Element Qualifiers Date Reported Smoke Exposure: . Second Hand Smoke Exposure: Yes Dec 01, 2015 Tobacco Use: . Are you a: current smoker Dec 01, 2015 Use of recreational / street drugs? . Answer: No Dec 01, 2015 Alcohol Screening: . Points: 2, Interpretation: Negative Dec 01, 2015 Do you have pets? . Status: No Dec 01, 2015 Caffeine intake? . Status: Yes, What type: Coffee, How often? Daily Dec 01, 2015 Do you exercise? . Answer: Yes, Type: walking, How often? Weekly Dec 01, 2015 Do you drink alcohol? . Status: Yes, Type: Beer wine, How often? Once per month Dec 01, 2015 Family history Qualifier Description Comment Date Reported Maternal Grandmother Comment not available Dec 01, 2015 Paternal Grandmother Comment not available Dec 01, 2015 Siblings Comment not available Dec 01, 2015 Maternal Grandfather Comment not available Dec 01, 2015 Children Comment not available Dec 01, 2015 Father Comment not available Dec 01, 2015 Paternal Grandfather Comment not available Dec 01, 2015 Mother Comment not available Dec 01, 2015 Other: Comment not available Dec 01, 2015 Vital Signs Date/Time: Dec 01, 2015 Weight 209.2 lbs Height 60 in Temperature 97.2 F Cardiac Monitoring Heart Rate 78 /min Blood Pressure Diastolic 83 mm Hg Blood Pressure Systolic 126 mm Hg Summary Purpose eClinicalWorks Submission
--- OUTSIDE RECORDS SUMMARY | 2018-06-02 06:56 | XMS REPORT ---
Author Author [facility] Address Unknown Phone Unavailable Care Team Providers Care Construction Technician Name Role Phone FATOU SHORE Unavailable Unavailable Problems This patient has no known problems. Allergies, Adverse Reactions, Alerts This patient has no known allergies or adverse reactions. Medications This patient has no known medications. Results Test Description Test Time Test Comments Text Results Atomic Results Result Comments CHEST 2 VIEWS 2018-05-29 15:59:00 [place] [address] Patient Name: LORETTA MARINA MR #: [id number] : 1975 Age/Sex: 43/F Req #: [id number] Adm Physician: Ordered by: FATOU SHORE MD Report #: [id number] Location: OR Room/Bed: Procedure: [id number] DX/CHEST 2 VIEWS Exam Date: Exam Time: REPORT STATUS: Signed EXAMINATION: PA and lateral views of the chest. COMPARISON: None CLINICAL HISTORY: Preadmission, PHARMACY SPECIALIST surgery DISCUSSION: Lines/tubes: None. Lungs: The lungs are well inflated and clear. No pneumonia or pulmonary edema. Pleura: No pleural effusion or pneumothorax. Heart and mediastinum: The cardiomediastinal silhouette is normal. Bones and soft tissues: No acute bony abnormalities. IMPRESSION: No acute cardiopulmonary abnormalities. Signed by: Dr. Kaden Truong M.D. on 05/29/2018 4:00 PM Dictated By: KADEN TRUONG MD 99 Transcribed By: MADHAV on 05/29/181599 COPY TO: FATOU SHORE MD
--- OUTSIDE RECORDS SUMMARY | 2018-06-02 06:56 | XMS REPORT ---
Author Author Lara Thapa [facility] eClinicalWorks Address Unknown Phone Unavailable Care Team Providers Care Recovery Operator Helper Name Role Phone Lara Thapa Unavailable Allergies, Adverse Reactions, Alerts Substance Reaction Event Type N.K.D.A. Info Not Available Non Drug Allergy Encounters Encounter Location Date Patient here for sick visit [facility] July 12, 2015 Patient here for sick visit [facility] August 01, 2015 patient here for follow up on ankle and knee pain [facility] August 04, 2015 patient here with complains of have her menstral cycle every 3 weeks [facility] October 12, 2015 patient here for her yearly physical and labs [facility] May 19, 2015 patient here with complains of ankle pain [facility] May 24, 2015 patient here to go over abnormal lab results and x-ray results [facility] May 31, 2015 patient here for sick visit [facility] Mar 04, 2016 odered ultrasound [facility] October 16, 2015 Patient here for sick visit [facility] Dec 01, 2015 Problems Problem Type Condition ICD-9 Code Onset Dates Condition Status Problem Right ankle pain M25.571 Active Problem Hyperlipidemia E78.5 Active Problem Low vitamin D level E55.9 Active Problem Irregular periods N92.6 Active Problem Menorrhagia N92.0 Active Problem Asthma J45.909 Active Problem Shortness of breath R06.02 Active Problem Cough R05 Active Problem Dysmenorrhea N94.6 Active Problem Increased urinary frequency R35.0 Active Assessment Bronchitis J40 Active Problem Morbid [...] Instructions Start Date End Date Status Dosage [facility] [address]-65 250 MG Orally Once a day Mar 04, 2016 Mar 09, 2016 Active 2 tablets on the first day, then 1 tablet daily for [address] [facility] [address]-72 10 mg Orally Once a day August 01, 2015 Active 1 tablet in the evening Natazia [facility] [address]-44 3/2-2/2-3/1 MG Orally Once a day October 12, 2015 Active [address] [facility] [address]-61 108 (90 Base) MCG/ACT Inhalation every 4-6 hrs as needed August 01, 2015 Active 2 puffs as needed Benzonatate [facility] [address]-37 200 MG Orally Three times a day as needed Mar 04, 2016 Mar 14, 2016 Active 1 capsule as needed Levocetirizine Dihydrochloride [facility] [address]-51 5 MG Orally daily Active 1 tablet in the evening Fluticasone Propionate [facility] [address]-90 50 MCG/ACT Nasally Once a day July 12, 2015 Active 1 spray in each nostril Crestor [facility] [address]-44 40 mg Orally Once a day May 31, 2015 Active [address] [facility] [address]-03 10 MG Orally Once a day Mar 04, 2016 Mar 09, 2016 Active 1 tablet Social History Social History Element Qualifiers Date Reported Smoke Exposure: . Second Hand Smoke Exposure: Yes Mar 04, 2016 Tobacco Use: . Are you a: current smoker Mar 04, 2016 Use of recreational / street drugs? . Answer: No Mar 04, 2016 Alcohol Screening: . Points: 2, Interpretation: Negative Mar 04, 2016 Do you have pets? . Status: No Mar 04, 2016 Caffeine intake? . Status: Yes, What type: Coffee, How often? Daily Mar 04, 2016 Do you exercise? . Answer: Yes, Type: walking, How often? Weekly Mar 04, 2016 Do you drink alcohol? . Status: Yes, Type: Beer wine, How often? Once per month Mar 04, 2016 Family history Qualifier Description Comment Date Reported Maternal Grandmother Comment not available Mar 04, 2016 Paternal Grandmother Comment not available Mar 04, 2016 Siblings Comment not available Mar 04, 2016 Maternal Grandfather Comment not available Mar 04, 2016 Children Comment not available Mar 04, 2016 Father Comment not available Mar 04, 2016 Paternal Grandfather Comment not available Mar 04, 2016 Mother unknown Comment not available Mar 04, 2016 Other: Comment not available Mar 04, 2016 Vital Signs Date/Time: Mar 04, 2016 Weight 210.6 lbs Height 60 in Temperature 97.9 F Cardiac Monitoring Heart Rate 89 /min Blood Pressure Diastolic 83 mm Hg Blood Pressure Systolic 134 mm Hg Summary Purpose eClinicalWorks Submission
--- OUTSIDE RECORDS SUMMARY | 2018-06-02 06:56 | XMS REPORT ---
Author Author Lara Thapa [facility] eClinicalWorks Address Unknown Phone Unavailable Care Team Providers Care Forensic Psychologist Name Role Phone Elier Lara Unavailable Allergies, Adverse Reactions, Alerts Substance Reaction Event Type N.K.D.A. Info Not Available Non Drug Allergy Encounters Encounter Location Date patient here for her yearly physical and labs [facility] May 19, 2015 patient here with complains of ankle pain [facility] May 24, 2015 patient here to go over abnormal lab results and x-ray results [facility] May 31, 2015 Problems Problem Type Condition ICD-9 Code Onset Dates Condition Status Problem Morbid obesity E66.01 Active Problem Tobacco use Z72.0 Active Problem Body mass index (BMI) of 40.1-44.9 in adult Z68.41 Active Problem Low vitamin D level E55.9 Active Problem Right ankle pain M25.571 Active Problem Hyperlipidemia E78.5 Active Problem Knee pain, right M25.561 Active Problem Environmental allergies Z91.09 Active Problem Abnormal x-ray R93.8 Active Problem Ankle pain M25.579 Active Assessment Abnormal x-ray R93.8 Active Assessment Right ankle pain M25.571 Active Assessment Low vitamin D level E55.9 Active Assessment Hyperlipidemia E78.5 Active Medications Medication Code System Code Instructions Start Date End Date Status Dosage Meloxicam [facility] [address]-77 15 MG Orally Once a day May 24, 2015 June 23, 2015 Active 1 tablet Ergocalciferol [facility] [address]-18 93227 UNIT Orally once a week May 31, 2015 August 29, 2015 Active 1 capsule Crestor [facility] [address]-53 40 mg Orally Once a day May 31, 2015 Active 1 tablet Social History Social History Element Qualifiers Date Reported Tobacco Use: . Are you a: current smoker May 31, 2015 Use of recreational / street drugs? . Answer: No May 31, 2015 Alcohol Screening: . Points: 2, Interpretation: Negative May 31, 2015 Do you have pets? . Status: No May 31, 2015 Caffeine intake? . Status: Yes, What type: Coffee, How often? Daily May 31, 2015 Do you exercise? . Answer: Yes, Type: walking, How often? Weekly May 31, 2015 Do you drink alcohol? . Status: Yes, Type: Beer wine, How often? Once per month May 31, 2015 Vital Signs Date/Time: May 31, 2015 Weight 213.5 lbs Height 60 in Temperature 98.6 F Cardiac Monitoring Heart Rate 90 /min Blood Pressure Diastolic 83 mm Hg Blood Pressure Systolic 133 mm Hg Summary Purpose eClinicalWorks Submission
--- OUTSIDE RECORDS SUMMARY | 2018-06-02 06:56 | XMS REPORT ---
Author Author Lara Thapa Organization [employer] Address Unknown Phone Unavailable Care Team Providers Care Central Sterilization Technician Name Role Phone Lara Thapa Unavailable Allergies, Adverse Reactions, Alerts Substance Reaction Event Type N.K.D.A. Info Not Available Non Drug Allergy Encounters Encounter Location Date patient here for her yearly physical and labs [facility] May 19, 2015 Problems Problem Type Condition ICD-9 Code Onset Dates Condition Status Problem Morbid obesity E66.01 Active Assessment Annual physical exam Z00.00 Active Problem Body mass index (BMI) of 40.1-44.9 in adult Z68.41 Active Assessment Body mass index (BMI) of 40.1-44.9 in adult Z68.41 Active Assessment Morbid obesity E66.01 Active Social History Social History Element Qualifiers Date Reported Tobacco Use: . Are you a: current smoker May 19, 2015 Use of recreational / street drugs? . Answer: No May 19, 2015 Do you have pets? . Status: No May 19, 2015 Caffeine intake? . Status: Yes, What type: Coffee, How often? Daily May 19, 2015 Do you exercise? . Answer: Yes, Type: walking, How often? Weekly May 19, 2015 Do you drink alcohol? . Status: Yes, Type: Beer wine, How often? Once per month May 19, 2015 Vital Signs Date/Time: May 19, 2015 Weight 214.2 lbs Height 60 in Temperature 98.6 F Cardiac Monitoring Heart Rate 92 /min Blood Pressure Diastolic 84 mm Hg Blood Pressure Systolic 134 mm Hg Immunizations Vaccine Administration Date FLU SHOT 3 & UP May 19, 2015 Summary Purpose eClinicalWorks Submission
--- OUTSIDE RECORDS SUMMARY | 2018-06-02 06:56 | XMS REPORT ---
Author Author Lara Thapa [facility] e[employer] Address Unknown Phone Unavailable Care Team Providers Care Propagator Name Role Phone Lara Thapa Unavailable Allergies, Adverse Reactions, Alerts Substance Reaction Event Type N.K.D.A. Info Not Available Non Drug Allergy Encounters Encounter Location Date Patient here for sick visit [facility] [place] July 12, 2015 patient here for her yearly physical and labs [facility] May 19, 2015 patient here with complains of ankle pain [facility] May 24, 2015 patient here to go over abnormal lab results and x-ray results [facility] [place] May 31, 2015 Problems Problem Type Condition [...] Problem Right ankle pain M25.571 Active Assessment Environmental allergies Z91.09 Active Assessment Sinusitis J32.9 Active Assessment Cough R05 Active Problem Morbid obesity E66.01 Active Assessment Shortness of breath R06.02 Active Problem Body mass index (BMI) of 40.1-44.9 in adult Z68.41 Active Medications Medication Code System Code Instructions Start Date End Date Status Dosage Ergocalciferol [facility] [address]-77 50985 UNIT Orally once a week May 31, 2015 August 29, 2015 Active 1 capsule Levocetirizine Dihydrochloride [facility] [address]-85 5 MG Orally Once a day July 12, 2015 September 10, 2015 Active 1 tablet in the evening Benzonatate [facility] [address]-94 200 MG Orally Three times a day as needed July 12, 2015 July 22, 2015 Active 1 capsule as needed Amoxicillin [facility] [address]-03 500 mg Orally every 12 hrs July 12, 2015 July 22, 2015 Active 1 tablet Crestor [facility] [address]-29 40 mg Orally Once a day May 31, 2015 Active 1 tablet Fluticasone Propionate [facility] [address]-35 50 MCG/ACT Nasally Once a day July 12, 2015 Active 1 spray in each nostril Proventil HFA [facility] [address]-67 108 (90 Base) MCG/ACT Inhalation every 4- 6 hrs as needed July 12, 2015 Active 2 puffs as needed Levalbuterol Tartrate [facility] [address]-99 45 MCG/ACT Inhalation every 4-6 hrs as needed July 12, 2015 Active 1 puff as needed Social History Social History Element Qualifiers Date Reported Tobacco Use: . Are you a: current smoker July 12, 2015 Use of recreational / street drugs? . Answer: No July 12, 2015 Alcohol Screening: . Points: 2, Interpretation: Negative July 12, 2015 Do you have pets? . Status: No July 12, 2015 Caffeine intake? . Status: Yes, What type: Coffee, How often? Daily July 12, 2015 Do you exercise? . Answer: Yes, Type: walking, How often? Weekly July 12, 2015 Do you drink alcohol? . Status: Yes, Type: Beer wine, How often? Once per month July 12, 2015 Vital Signs Date/Time: July 12, 2015 Weight 212.4 lbs Height 60 in Temperature 97.5 F Cardiac Monitoring Heart Rate 70 /min Blood Pressure Diastolic 78 mm Hg Blood Pressure Systolic 122 mm Hg Summary Purpose eClinicalWorks Submission
--- OUTSIDE RECORDS SUMMARY | 2018-06-02 06:56 | XMS REPORT ---
Author Author Lara Thapa [facility] e[employer] Address Unknown Phone Unavailable Care Team Providers Care Packaging Sales Representative Name Role Phone Lara Thapa Unavailable Allergies, Adverse Reactions, Alerts Substance Reaction Event Type N.K.D.A. Info Not Available Non Drug Allergy Encounters Encounter Location Date Patient here for sick visit [facility] July 12, 2015 Patient here for sick visit [facility] August 01, 2015 patient here for follow up on ankle and knee pain [facility] August 04, 2015 patient here with complains of have her menstral cycle every 3 weeks [facility] October 12, 2015 patient here for her yearly physical and labs [facility] May 19, 2015 patient here with complains of ankle pain [facility] May 24, 2015 patient here to go over abnormal lab results and x-ray results [facility] May 31, 2015 Problems Problem Type Condition [...] Problem Shortness of breath R06.02 Active Assessment Dysmenorrhea N94.6 Active Assessment Menorrhagia N92.0 Active Assessment Increased urinary frequency R35.0 Active Assessment Hyperlipidemia E78.5 Active Problem Tobacco use Z72.0 Active Problem Environmental allergies Z91.09 Active Problem Morbid obesity E66.01 Active Problem Knee pain, right M25.561 Active Problem Body mass index (BMI) of 40.1-44.9 in adult Z68.41 Active Problem Ankle pain M25.579 Active Medications Medication Code System Code Instructions Start Date End Date Status Dosage ProAir HFA [facility] [address]-51 108 (90 Base) MCG/ACT Inhalation every 4-6 hrs as needed August 01, 2015 Active 2 puffs as needed Naproxen [facility] [address]-68 500 mg Orally Twice a day October 12, 2015 Nov 11, 2015 Active 1 tablet Montelukast Sodium [facility] [address]-68 10 mg Orally Once a day August 01, 2015 Active 1 tablet in the evening Crestor [facility] [address]-06 40 mg Orally Once a day May 31, 2015 Active 1 tablet Natazia [facility] [address]-36 3/2-2/2-3/1 MG Orally Once a day October 12, 2015 Active 1 tablet Fluticasone Propionate [facility] [address]-36 50 MCG/ACT Nasally Once a day July 12, 2015 Active 1 spray in each nostril Social History Social History Element Qualifiers Date [...] often? Once per month October 12, 2015 Vital Signs Date/Time: October 12, 2015 Weight 210.5 lbs Height 60 in Temperature 98.0 F Cardiac Monitoring Heart Rate 74 /min Blood Pressure Diastolic 65 mm Hg Blood Pressure Systolic 133 mm Hg Summary Purpose eClinicalWorks Submission
--- OUTSIDE RECORDS SUMMARY | 2018-06-02 06:56 | XMS REPORT ---
Author Author Lara Thapa [facility] e[employer] Address Unknown Phone Unavailable Care Team Providers Care Electrical Manufacturing Technician Name Role Phone Lara Thapa Unavailable Allergies, Adverse Reactions, Alerts Substance Reaction Event Type N.K.D.A. Info Not Available Non Drug Allergy Encounters Encounter Location Date Patient here for sick visit [facility] July 12, 2015 Patient here for sick visit [facility] August 01, 2015 patient here for follow up on ankle and knee pain [facility] August 04, 2015 patient here for her yearly physical and labs [facility] May 19, 2015 patient here with complains of ankle pain [facility] May 24, 2015 patient here to go over abnormal lab results and x-ray results [facility] May 31, 2015 Problems [...] Problem Right ankle pain M25.571 Active Assessment Abnormal MRI R93.8 Active Assessment Right ankle pain M25.571 Active Problem Morbid obesity E66.01 Active Problem Body mass index (BMI) of 40.1-44.9 in adult Z68.41 Active Medications Medication Code System Code Instructions Start Date End Date Status Dosage Ergocalciferol [facility] [address]-18 85503 UNIT Orally once a week May 31, 2015 August 29, 2015 Active 1 capsule Crestor [facility] [address]-81 40 mg Orally Once a day May 31, 2015 Active 1 tablet Levofloxacin [facility] [address]-51 500 mg Orally Once a day August 01, 2015 August 06, 2015 Active 1 tablet Levocetirizine Dihydrochloride [facility] [address]-77 5 MG Orally Once a day July 12, 2015 September 10, 2015 Active 1 tablet in the evening [facility]Air [facility] [address]-50 108 (90 Base) MCG/ACT Inhalation every 4-6 hrs as needed August 01, 2015 Active 2 puffs as needed Castillo Padron [facility] [address]-38 100 mg Orally Three times a day as needed August 01, 2015 August 11, 2015 Active 1 capsule as needed Montelukast Sodium [facility] [address]-25 10 mg Orally Once a day August 01, 2015 Active 1 tablet in the evening Fluticasone Propionate [facility] [address]-98 50 MCG/ACT Nasally Once a day July 12, 2015 Active 1 spray in each nostril Social History Social History Element Qualifiers Date Reported Tobacco Use: . Are you a: current smoker August 04, 2015 Use of recreational / street drugs? . Answer: No August 04, 2015 Alcohol Screening: . Points: 2, Interpretation: Negative August 04, 2015 Do you have pets? . Status: No August 04, 2015 Caffeine intake? . Status: Yes, What type: Coffee, How often? Daily August 04, 2015 Do you exercise? . Answer: Yes, Type: walking, How often? Weekly August 04, 2015 Do you drink alcohol? . Status: Yes, Type: Beer wine, How often? Once per month August 04, 2015 Family history Qualifier Description Comment Date Reported Maternal Grandmother Comment not available August 04, 2015 Paternal Grandmother Comment not available August 04, 2015 Siblings Comment not available August 04, 2015 Maternal Grandfather Comment not available August 04, 2015 Children Comment not available August 04, 2015 Father Comment not available August 04, 2015 Paternal Grandfather Comment not available August 04, 2015 Mother Comment not available August 04, 2015 Other: Comment not available August 04, 2015 Vital Signs Date/Time: August 04, 2015 Weight 212.6 lbs Height 60 in Temperature 98.1 F Cardiac Monitoring Heart Rate 90 /min Blood Pressure Diastolic 77 mm Hg Blood Pressure Systolic 109 mm Hg Summary Purpose eClinicalWorks Submission
--- OUTSIDE RECORDS SUMMARY | 2018-06-02 06:56 | XMS REPORT ---
Author Author Lara Thapa Organization [employer] Address Unknown Phone Unavailable Care Team Providers Care Registered Dietetic Technician Name Role Phone Elier, Lara Unavailable Allergies, Adverse Reactions, Alerts Substance Reaction Event Type N.K.D.A. Info Not Available Non Drug Allergy Encounters Encounter Location Date patient here for her yearly physical and labs [facility] May 19, 2015 patient here with complains of ankle pain [facility] May 24, 2015 Problems Problem Type Condition ICD-9 Code Onset Dates Condition Status Assessment Tobacco use Z72.0 Active Assessment Knee pain, right M25.561 Active Assessment Environmental allergies Z91.09 Active Problem Knee pain, right M25.561 Active Problem Environmental allergies Z91.09 Active Problem Ankle pain M25.579 Active Problem Morbid obesity E66.01 Active Assessment Ankle pain M25.579 Active Problem Tobacco use Z72.0 Active Problem Body mass index (BMI) of 40.1-44.9 in adult Z68.41 Active Medications Medication Code System Code Instructions Start Date End Date Status Dosage Meloxicam [facility] [address]-88 15 MG Orally Once a day May 24, 2015 June 23, 2015 Active 1 tablet Social History Social History Element Qualifiers Date Reported Tobacco Use: . Are you a: current smoker May 24, 2015 Use of recreational / street drugs? . Answer: No May 24, 2015 Do you have pets? . Status: No May 24, 2015 Caffeine intake? . Status: Yes, What type: Coffee, How often? Daily May 24, 2015 Do you exercise? . Answer: Yes, Type: walking, How often? Weekly May 24, 2015 Do you drink alcohol? . Status: Yes, Type: Beer wine, How often? Once per month May 24, 2015 Vital Signs Date/Time: May 24, 2015 Weight 211.7 lbs Height 60 in Temperature 98.6 F Cardiac Monitoring Heart Rate 78 /min Blood Pressure Diastolic 85 mm Hg Blood Pressure Systolic 152 mm Hg Summary Purpose eClinicalWorks Submission
[2018-06-02 15:15] VITALS: BP 116/63
--- NOTE | 2018-06-02 17:16 | Operative Report ---
DATE OF PROCEDURE: 06/02/2018 SURGEON: Stephy Sewell MD PREOPERATIVE DIAGNOSIS: Genuine stress incontinence. POSTOPERATIVE DIAGNOSIS: Genuine stress incontinence. PROCEDURE: Transobturator tape and cystoscopy. COMPLICATIONS: None. ESTIMATED BLOOD LOSS: Minimal. PROCEDURE IN DETAIL: The patient was taken to the OR. General anesthesia was induced. She was prepped and draped in a sterile fashion, placed in dorsal lithotomy position. Elizalde catheter was placed inside the bladder and the bladder neck was marked at the UVJ using Allis clamp and another Allis clamp was applied at the external urethral meatus. The subvaginal tissue between the two clamps was injected with Marcaine with epinephrine 0.25%. Marker pen was used to kathryn the entry points for the Obtryx trocar intercrural line. The middle third of the urethra was marked and incision was made. Vaginal skin was cut with the knife and subvaginal tissue was dissected off the urethra using Metzenbaum scissors towards the inferior pubic ramus on both sides. Stab wounds were made at the entry points with the scalpel and Obtryx trocar was passed through the entry points, felt with finger just below the inferior pubic ramus and passed through the outside of the wound. The sling was hooked to the Obtryx trocar, the trocar was withdrawn and the same was repeated on the other side and sling was laid down flat at the level of the midurethra. Cystoscopy was performed that showed normal bladder and urethra. The plastic cover was removed off the sling and the vagina was closed with interlocking stitch of Vicryl 0. The excess sling was trimmed off using the curved Alford scissors and the skin was approximated using Dermabond. The patient tolerated the procedure well. Lap and instrument count was correct x2 at the end of the procedure. Stephy Sewell MD DD/ROBYN /[id number]
== END | disposition home or self-care (01) ==
LOC: OR 06:53
PROVIDERS: ATTEND Obstetrics & Gynecology
DX: N39.3 Stress incontinence (female) (male) (principal); J45.909 Unspecified asthma, uncomplicated; R06.83 Snoring; K28.9 Gastrojejunal ulcer, unspecified as acute or chronic, without hemorrhage or perforation; Z01.812 Encounter for preprocedural laboratory examination; Z01.818 Encounter for other preprocedural examination; Z87.891 Personal history of nicotine dependence; Z90.710 Acquired absence of both cervix and uterus
CPT/HCPCS: 36415; 57288; 71046; 84702; 85025; 93005; C1781; J0690; J1100; J1885; J2001; J2250; J2405; J2550; J2704; J2765; J3490